=== PATIENT | male | born 1955 | race Caucasian/White ===

== ENCOUNTER 2024-11-23 06:20 | Day surgery (SDC) | payer MEDICARE, OTHER, SELFPAY | END 2024-11-23 10:13 | disposition home or self-care (01) | LOC: GI 06:20 | PROVIDERS: ATTENDING PHYSICIAN Internal Medicine Gastroenterology; FAMILY PHYSICIAN Family Medicine | DX: Z12.11 Encounter for screening for malignant neoplasm of colon (principal); Z86.0101 Personal history of adenomatous and serrated colon polyps; R12 Heartburn; K22.2 Esophageal obstruction; K44.9 Diaphragmatic hernia without obstruction or gangrene | CPT/HCPCS: 43235; G0105 ==